=== PATIENT | female | born 1945 | race Caucasian/White ===

== ENCOUNTER 2023-09-02 18:07 | Observation (INO) ==
[2023-09-02 19:08] LABS: Basophils # (auto) 0.05 K/uL (0.00-0.20); Basophils % (auto) 0.4 %; Eosinophils # (auto) 0.11 K/uL (0.00-0.50); Hematocrit (blood only) 45.4 % (37.0-47.0); Hemoglobin 15.9 g/dl (12.0-16.0); Immature Granulocytes # (auto) 0.04 K/uL (0.01-0.20); Immature Granulocytes % (auto) 0.4 %; Lymphocytes # (auto) 2.44 K/uL (1.20-3.40); Lymphocytes % (auto) 21.9 %; Mean Corpuscular Hemoglobin 30.8 pg (25.0-34.0); Mean Platelet Volume 11.2 fL (9.4-12.4); Monocytes # (auto) 1.31 K/uL (0.11-0.59); Monocytes % (auto) 11.7 %; Neutrophils # (auto) 7.21 K/uL (1.40-6.50); Neutrophils % (auto) 64.6 %; Platelet Count 268 K/uL (130-400); RDW Coefficient of Variation 12.2 % (11.5-14.5); RDW Standard Deviation 39.8 fL (36.4-46.3); Red Blood Count 5.16 M/uL (4.20-5.40); White Blood Count 11.16 K/ul (4.8-10.8)
[2023-09-02 19:23] LABS: Alanine Aminotransferase 20 U/L (7-52); Albumin Globulin Ratio 1.4 (0.9-2); Albumin Level 4.5 gm/dl (3.4-5.0); Alkaline Phosphatase 78 U/L (34-104); Anion Gap 12 (3-11); Aspartate Aminotransferase 19 U/L (13-39); BUN Creatinine Ratio 13.2 (10-20); Bilirubin,Total 1.4 mg/dl (0.2-1.0); Blood Urea Nitrogen 23 mg/dl (6-23); Calcium 10.2 mg/dl (8.6-10.3); Carbon Dioxide 20 mmol/L (21-32); Chloride 103 mmol/L (98-107); Est GFR (African American) 32.4 ml/min; Globulin 3.2 gm/dl (2.5-4.0); Glucose 108 mg/dl (70-99(Fasting)); Potassium 4.2 mmol/L (3.5-5.1); Sodium 135 mmol/L (136-145); Total Protein 7.7 gm/dl (6.0-8.3)
[2023-09-02] MEDS ORDERED: MoRPHine SULFATE 4 MG/ML 1 ML CARP\\VIAL IV STA ×2 (20:20→23:05)
[2023-09-02] MEDS ORDERED: MoRPHine SULFATE 4 MG/ML 1 ML CARP\\VIAL IV PRN (20:20)
[2023-09-02] MEDS ORDERED: ONDANSETRON INJ 2 MG/ML 2 ML VIAL IV STA ×2 (20:20→23:12)
[2023-09-02] MEDS ORDERED: SODIUM CHLORIDE 0.9% 500 ML IV ONE (20:20)
--- NOTE | 2023-09-02 20:20 | Emergency Department Note ---
Impression & Plan Lumbar radiculopathy, Strain of lumbar region ED Provider Note NAME: SHEIAL BASS AGE: 78 SEX: F : 1945 ARRIVES VIA: Walk-In INFORMANT: Patient, the patient's family ED PROVIDER(S): Mark Israel DO CHIEF COMPLAINT: Back pain HPI: The patient is a 78-year-old female who presented to the emergency department for an evaluation of back pain. The patient has been having problems with lower back pain over the course the last few years. Symptoms have been worsening recently. She has had injections in her back. She has been on pain medication. She now notices pain into her right leg. She is not able to have an MRI because of her pacemaker. The patient herself saw her primary pain doctor. She was told to go to the emergency department for possible further testing as well as possible inpatient management. The patient denies having any fever. She denies having any recent trauma. ROS: See above HPI for pertinent positives & negatives. A total of 10 systems reviewed and were otherwise negative. PAST MEDICAL HISTORY: See Below PAST SURGICAL HISTORY: See Below FAMILY HISTORY: See Below SOCIAL HISTORY: See Below HOME MEDICATIONS: See Below ALLERGIES: See Below VITALS: See Below PHYSICAL EXAMINATION: GENERAL: Patient is awake alert in no acute distress patient is resting comfortably and showing no signs of anxiety EYES: The conjunctivae are clear. The pupils are round and reactive. EARS, NOSE, MOUTH AND THROAT: The nose is without any evidence of any deformity. NECK: The neck is nontender and supple. RESPIRATORY: Normal respiratory effort is noted there is no evidence of wheezing rhonchi or rales CARDIOVASCULAR: Regular rate and rhythm noted there no murmurs rubs or gallops normal S1 normal S2. GASTROINTESTINAL: The abdomen is soft. Abdomen is nontender. BACK: Midline tenderness was noted in the lower lumbar spine as well as over the right sciatic notch. Range of motion appears intact but painful. MUSCULOSKELETAL/EXTREMITIES: There is no evidence of gross deformity full range of motion is noted in the hips and shoulders. SKIN: There is no obvious evidence of any rash. There are no petechiae, pallor or cyanosis noted. NEUROLOGIC: Patient is awake alert and oriented x3. Patellar tendon reflex in the left leg was 2+. Patellar tendon reflex was absent the right leg. MEDICAL DECISION MAKING: Patient is a 78-year-old female who presented to the emergency department for an evaluation of back pain. The patient has a history of chronic back pain which is starting to worsen. The patient was seen by her primary pain specialist. He feels that she is not receiving significant pain relief with the modalities that he can provide any recommend that she come to the emergency department for further evaluation. Patient was treated with IV pain medication as well as IV steroids emergency department. I discussed the patient's laboratory and radiographic studies with her. Ultimately she was still feeling significant pain so I discussed her condition with the on-call [facility] hospitalist. Triage Nursing notes reviewed. Prior medical records reviewed Vital Signs: reviewed and remarkable for elevated blood pressure. Differential diagnosis: Musculoskeletal, disc herniation, fracture, metastatic disease, cord compression, discitis, sciatica, cauda equina, infection, aortic disease, renal colic, gastrointestinal, as well as other pathologies. ER treatment provided: See below Diagnostics interpreted by me: ECG: none Cardiac Monitoring: An order was placed for continuous cardiac monitoring. The monitor shows a rate of 60 bpm with paced rhythm. Laboratory studies: As stated above and show below. Imaging studies: See below. Radiographic imaging was reviewed by myself Consultation(s): I discussed this case with Dr. Waterman who is on-call for the [facility]. Past Med/Surg History Medical History Pacemaker Surgical History Hx of cholecystectomy H/O: hysterectomy History of tonsillectomy Social History Smoking Status: Former smoker Preferred Language: Senegalese Feels Safe at Home: Yes Allergies Allergies Allergy/AdvReac Type Severity Reaction Status Date / Time adhesive tape Allergy Intermediate SKIN Verified 09/02/23 21:41 IRRITATION Iodinated Contrast Media Allergy Intermediate TROUBLE Verified 09/02/23 23:07 BREATHING, "HOT" FLUSHED Penicillins Allergy Intermediate INJECTION Verified 09/02/23 21:41 SITE--SEVERE SWELLING tramadol Allergy Unknown Unknown Verified 09/02/23 21:41 oxycodone [From Percocet] AdvReac Intermediate Vomiting Verified 09/02/23 21:41 Home Meds Home Medications Medication Instructions Recorded Confirmed albuterol sulfate 90 mcg/actuation 1 inh inhalation Q4H PRN Shortness 09/02/23 09/02/23 aerosol inhaler Of Breath Or Wheezing aspirin 81 mg tablet,delayed 81 mg PO DAILY 09/02/23 09/02/23 release cholecalciferol (vitamin D3) 50 50 mcg PO DAILY 09/02/23 09/02/23 mcg (2,000 unit) capsule (Vitamin D3) cyanocobalamin (vitamin B-12) 1,000 mcg PO DAILY 09/02/23 09/02/23 1,000 mcg tablet (Vitamin B-12) dicyclomine 20 mg tablet 20 mg PO TID PRN ABD DISCOMFORT 09/02/23 09/02/23 fluticasone furoate 200 1 inh inhalation DAILY 09/02/23 09/02/23 mcg-vilanterol 25 mcg/dose inhalation powder (Breo Ellipta) gabapentin 600 mg tablet 600 mg PO HS 09/02/23 09/02/23 levothyroxine 75 mcg tablet 75 mcg PO DAILY 09/02/23 09/02/23 losartan 100 mg tablet 100 mg PO DAILY 09/02/23 09/02/23 pantoprazole 40 mg tablet,delayed 40 mg PO DAILY 09/02/23 09/02/23 release rosuvastatin 20 mg tablet 20 mg PO DAILY 09/02/23 09/02/23 simethicone 80 mg chewable tablet 80 mg PO DIRECTED PRN 09/02/23 09/02/23 BLOATING/GAS DISCOMFORT zolpidem 5 mg tablet (Ambien) 5 mg PO HS 09/02/23 09/02/23 Results & Data (ED) Vital Signs Vital Signs - 24 hr 09/02/23 18:23 09/02/23 19:45 09/02/23 19:51 Temperature 36.8 C Temperature Source Temporal Artery Scan Pulse Rate 90 60 Pulse Rate [Apical] 60 Pulse Rhythm Regular Pulse Rhythm [Apical] Regular Pulse Strength Normal Respiratory Rate 20 20 Respiratory Effort / Characteristics Non-Labored Spontaneous Non-Labored Spontaneous Respiratory Depth Normal Normal Respiratory Pattern Regular Regular Blood Pressure 91/59 L Blood Pressure [Right Arm] 120/64 Blood Pressure Mean 69 Blood Pressure Mean [Right Arm] 82 Blood Pressure Position [Right Arm] Lying Pulse Oximetry 97 100 Oxygen Delivery Method Room Air Room Air Sepsis Recent Fever Within 48 Hours No Sepsis New/Unexplained Change in Mental Status No Sepsis Action Taken by Nursing No Action Required 09/02/23 22:08 Temperature Temperature Source Pulse Rate Pulse Rate [Apical] 60 Pulse Rhythm Pulse Rhythm [Apical] Regular Pulse Strength Respiratory Rate 18 Respiratory Effort / Characteristics Non-Labored Spontaneous Respiratory Depth Normal Respiratory Pattern Regular Blood Pressure Blood Pressure [Right Arm] 150/61 H Blood Pressure Mean Blood Pressure Mean [Right Arm] 90 Blood Pressure Position [Right Arm] Lying Pulse Oximetry 98 Oxygen Delivery Method Room Air Sepsis Recent Fever Within 48 Hours Sepsis New/Unexplained Change in Mental Status Sepsis Action Taken by [facility] Medications Current Medication List: was personally reviewed by me Laboratory Data Attestation: I reviewed the patient's lab results. 09/02/23 18:51 09/02/23 18:51 Lab Results 09/02/23 Range/Units 18:51 WBC 11.16 H (4.8-10.8) K/ul RBC 5.16 (4.20-5.40) M/uL Hgb 15.9 (12.0-16.0) g/dl Hct 45.4 (37.0-47.0) % MCV 88.0 (80.0-100.0) fL MCH 30.8 (25.0-34.0) pg MCHC 35.0 (32.0-36.0) g/dL RDW Std Deviation 39.8 (36.4-46.3) fL RDW Coeff of Nika 12.2 (11.5-14.5) % Plt Count 268 (130-400) K/uL MPV 11.2 (9.4-12.4) fL Immature Gran % (Auto) 0.4 % Neut % (Auto) 64.6 % Lymph % (Auto) 21.9 % [place] % (Auto) 11.7 % Eos % (Auto) 1.0 % Baso % (Auto) 0.4 % Neut # (Auto) 7.21 H (1.40-6.50) K/uL Lymph # (Auto) 2.44 (1.20-3.40) K/uL [place] # (Auto) 1.31 H (0.11-0.59) K/uL Eos # (Auto) 0.11 (0.00-0.50) K/uL Baso # (Auto) 0.05 (0.00-0.20) K/uL Immature Gran # (Auto) 0.04 (0.01-0.20) K/uL Sodium 135 L (136-145) mmol/L Potassium 4.2 (3.5-5.1) mmol/L Chloride 103 (98-107) mmol/L Carbon Dioxide 20 L (21-32) mmol/L Anion Gap 12 H (3-11) BUN 23 (6-23) mg/dl Creatinine 1.74 H (0.6-1.2) mg/dl Est Cr Clr Drug Dosing Not Reportable Est GFR ( Amer) 32.4 ml/min Est GFR (Non-Af Amer) 28.0 ml/min BUN/Creatinine Ratio 13.2 (10-20) Glucose 108 H (70-99(Fasting)) mg/dl Calcium 10.2 (8.6-10.3) mg/dl Total Bilirubin 1.4 H (0.2-1.0) mg/dl AST 19 (13-39) U/L ALT 20 (7-52) U/L Alkaline Phosphatase 78 (34-104) U/L Total Protein 7.7 (6.0-8.3) gm/dl Albumin 4.5 (3.4-5.0) gm/dl Globulin 3.2 (2.5-4.0) gm/dl Albumin/Globulin Ratio 1.4 (0.9-2) Administered Medications Morphine Sulfate (Morphine Sulfate 4 Mg/Ml 1 Ml Carp\\Vial) 4 mg IV Q30M PRN PRN Reason: Pain Stop: 09/16/23 20:19 Last Admin: 09/02/23 21:26 Dose: 4 mg Documented By: SAMRA Morphine Sulfate (Morphine Sulfate 4 Mg/Ml 1 Ml Carp\\Vial) 4 mg IV NOW STA Stop: 09/02/23 23:06 Last Admin: 09/02/23 23:22 Dose: 4 mg Documented By: NAHID Ondansetron HCl (Ondansetron Inj 2 Mg/Ml 2 Ml Vial) 4 mg IV NOW STA Stop: 09/02/23 23:13 Last Admin: 09/02/23 23:22 Dose: 4 mg Documented By: NAHID Discontinued Medications Dexamethasone Sodium Phosphate (DexamethasonePf 10 Mg/Ml Vial) 10 mg IV NOW ONE Stop: 09/02/23 21:47 Last Admin: 09/02/23 22:07 Dose: 10 mg Documented By: BILL Sodium Chloride (Nss) 500 mls @ 999 mls/hr IV .Q31M ONE Stop: 09/02/23 20:50 Last Infusion: 09/02/23 22:09 Dose: Infused Documented By: Admin: 09/02/23 20:28 Dose: 999 mls/hr Documented By: BILL Morphine Sulfate (Morphine Sulfate 4 Mg/Ml 1 Ml Carp\\Vial) 4 mg IV NOW STA Stop: 09/02/23 20:21 Last Admin: 09/02/23 20:25 Dose: 4 mg Documented By: BILL Ondansetron HCl (Ondansetron Inj 2 Mg/Ml 2 Ml Vial) 4 mg IV NOW STA Stop: 09/02/23 20:21 Last Admin: 09/02/23 20:25 Dose: 4 mg Documented By: BILL Imaging Data Attestation: I personally reviewed and interpreted this imaging study as follows: My Impression: CT of the abdomen and pelvis was obtained in the emergency department. My interpretation is no free air or signs of bowel obstruction, final report below. Radiologist's Impression: Abdomen/Pelvis CT 09/02/23 20:20 Exam(s): CT ABDOMEN + PELVIS Without Contrast EXAM: CT Abdomen and Pelvis Without Intravenous Contrast CLINICAL HISTORY: Reason for exam: flank pain. TECHNIQUE: Axial computed tomography images of the abdomen and pelvis without intravenous contrast. CTDI is 26.58 mGy and DLP is 1287.83 mGy-cm. Automated exposure control was utilized for the study. A dose lowering technique was utilized adhering to the principles of ALARA. COMPARISON: No relevant prior studies available. FINDINGS: Lung bases: Unremarkable. No mass. No consolidation. ABDOMEN: Liver: Unremarkable. No focal hepatic lesion. Gallbladder and bile ducts: Cholecystectomy. No ductal dilation. Pancreas: Unremarkable. No ductal dilation. Spleen: Unremarkable. No splenomegaly. Adrenals: Unremarkable. No mass. Kidneys and ureters: Unremarkable. No hydronephrosis or nephrolithiasis. Stomach and bowel: Unremarkable. No acute diverticulitis. No bowel obstruction. No free air. PELVIS: Appendix: No findings to suggest acute appendicitis. Bladder: Decompressed urinary bladder. No stones. Reproductive: Unremarkable as visualized. ABDOMEN and PELVIS: Intraperitoneal space: See above. Bones/joints: Degenerative changes of the spine. No acute fracture. No dislocation. Soft tissues: Unremarkable. Vasculature: Atherosclerotic changes of the aorta. No abdominal aortic aneurysm. Lymph nodes: Unremarkable. No enlarged lymph nodes. IMPRESSION: No hydronephrosis or nephrolithiasis. Electronically signed by: David Byrd MD 09/02/23 20:54 PM Discharge Plan Visit Data Chief Complaint: Back Injury/Pain Stated Complaint: BACK PAIN SINCE BEGINING OF AUGUST ED Provider: Mark Israel Discharge Problem: Lumbar radiculopathy, Strain of lumbar region Patient Disposition: Being Evaluated by Hospitalist Forms Stand Alone Forms: [facility] Prescriptions Prescriptions: No Action gabapentin 600 mg Tablet 600 mg PO HS cyanocobalamin (vitamin B-12) [Vitamin B-12] 1,000 mcg Tablet 1,000 mcg PO DAILY aspirin 81 mg Tablet,Delayed Release (Dr/Ec) 81 mg PO DAILY levothyroxine 75 mcg Tablet 75 mcg PO DAILY dicyclomine 20 mg Tablet 20 mg PO TID PRN (Reason: ABD DISCOMFORT) pantoprazole 40 mg Tablet,Delayed Release (Dr/Ec) 40 mg PO DAILY zolpidem [Ambien] 5 mg Tablet 5 mg PO HS albuterol sulfate 90 mcg/actuation Hfa Aerosol Inhaler 1 inh INHALATION Q4H PRN (Reason: Shortness Of Breath Or Wheezing) losartan 100 mg Tablet 100 mg PO DAILY simethicone [Gas-X] 80 mg Tablet,Chewable 80 mg PO DIRECTED PRN (Reason: BLOATING/GAS DISCOMFORT) rosuvastatin 20 mg Tablet 20 mg PO DAILY cholecalciferol (vitamin D3) [Vitamin D3] 50 mcg (2,000 unit) Capsule 50 mcg PO DAILY fluticasone furoate-vilanterol [Breo Ellipta] 200-25 mcg/dose Blister With Device 1 inh INHALATION DAILY Referrals Referrals: PCP,NO [Physician] - Discharge Problem: Strain of lumbar region Qualifiers: Encounter type: initial encounter Qualified Code(s): S39.012A - Strain of muscle, fascia and tendon of lower back, initial encounter
--- NOTE | 2023-09-02 20:55 | CT Scan Report ---
Exam(s): CT ABDOMEN + PELVIS Without Contrast EXAM: CT Abdomen and Pelvis Without Intravenous Contrast CLINICAL HISTORY: Reason for exam: flank pain. TECHNIQUE: Axial computed tomography images of the abdomen and pelvis without intravenous contrast. CTDI is 26.58 mGy and DLP is 1287.83 mGy-cm. Automated exposure control was utilized for the study. A dose lowering technique was utilized adhering to the principles of ALARA. COMPARISON: No relevant prior studies available. FINDINGS: Lung bases: Unremarkable. No mass. No consolidation. ABDOMEN: Liver: Unremarkable. No focal hepatic lesion. Gallbladder and bile ducts: Cholecystectomy. No ductal dilation. Pancreas: Unremarkable. No ductal dilation. Spleen: Unremarkable. No splenomegaly. Adrenals: Unremarkable. No mass. Kidneys and ureters: Unremarkable. No hydronephrosis or nephrolithiasis. Stomach and bowel: Unremarkable. No acute diverticulitis. No bowel obstruction. No free air. PELVIS: Appendix: No findings to suggest acute appendicitis. Bladder: Decompressed urinary bladder. No stones. Reproductive: Unremarkable as visualized. ABDOMEN and PELVIS: Intraperitoneal space: See above. Bones/joints: Degenerative changes of the spine. No acute fracture. No dislocation. Soft tissues: Unremarkable. Vasculature: Atherosclerotic changes of the aorta. No abdominal aortic aneurysm. Lymph nodes: Unremarkable. No enlarged lymph nodes. IMPRESSION: No hydronephrosis or nephrolithiasis. Electronically signed by: David Byrd MD 09/02/23 20:54 PM
[2023-09-02] MEDS ORDERED: dexAMETHasone**PF** 10 MG/ML VIAL IV ONE (21:46)
[2023-09-02] MEDS ORDERED: ONDANSETRON INJ 2 MG/ML 2 ML VIAL IV PRN (23:12)
--- NOTE | 2023-09-02 23:24 | History & Physical Report ---
Date of Service September 02, 2023 Assessment & Plan (1) Lumbar radiculopathy: Plan: 78yo female with history of chronic low back pain, sacroiliitis presenting with 2+ weeks of ongoing back pain. Pain is bilateral SI joints, worse on the right. Also with radicular pain down anterior right thigh to the knee likely corresponding with L2-L3 territory. Strength and sensation intact but she does have diminished patellar reflex. No trauma or fever. -Admit to medical -Tylenol 1gm po TID scheduled -Heat via K-pad -Flexeril 5mg po BID -Prednisone 50mg po daily -Morphine as needed per tiered scale -Continue home Gabapentin -Colace 100mg po BID -Miralax PRN -PT/OT evaluation appreciated -Consider Ortho-Spine consultation vs outpatient referral. Patient's pain specialist recommended that she be evaluated for possible surgery in the future. (2) CKD (chronic kidney disease): Plan: Unknown baseline renal function. BUN=23, Cr elevated at 1.74. Suspect some degree of renal dysfunction (HCO3=20 with AG of 12)? -Gentle IVF - LR x 1L -Avoid nephrotoxic agents -Renal dosing where needed - eGFR=28 -If renal function improves could consider some Toradol for additional pain relilef -Holdin Losartan (3) TIA (transient ischemic attack): Plan: Chronic. Stable. -Continue ASA 81mg po daily -Continue Crestor (4) Louis esophagus: Plan: Chronic. Stable -Continue Protonix 40mg po daily (5) Hypothyroid: Plan: Chronic -Continue Synthroid -Check TSH with AM labs History of Present Illness Chief Complaint: intractable back pain Primary Care Provider: VERÓNICA Higgins is a 78yo female presenting with acute on chronic low back pain. Patient developed pain across her back in bilateral SI joints on 08/16/23. She was seen by her pain specialist, Dr. Pickering on 08/18/23 and had injections performed. She reports minimal relief with these injections. She has been taking Tylnoel, Aleve and using ice and heat with minimal relief. She took a Percocet tab as well which did not relieve her pain. She was seen again by Dr. Pickering on 08/23/23 and was told that her pain was likely from a pinched nerve in her back. She was given additional injections with some improvement for 1-2 days. She was seen in clinic again today with ongoing pain and was instructed to come to the ER for additional workup and treatment. Patient reports severe, ongoing pain in her bilateral SI joints which is worse on the right. She has pain radiating down the right anterior thigh to the knee. She feels that the RLE is overall fairly strong but sometimes des which she thinks is from the pain. She has had some constipation, otherwise, no change in bowels or bladder. No fever. No trauma. Patient has had poor appetite and decreased oral intake of late secondary to her pain. She has had some constipation as well. Otherwise, denies fever, chills, chest pain, cough,, SOB, abdominal pain, vomiting or diarrhea. At baseline she is fairly active. She is able to ambulate short distances without assistance. She also walks her dog frequently. In the ER she is afebrile, HD stable ER course: Zofran 4mg IV x 2 Morphine 4mg IV x 3 doses NSS x 500mL Dexamethasone 10mg IV Allergies Allergy/AdvReac Type Severity Reaction Status Date / Time adhesive tape Allergy Intermediate SKIN Verified 09/02/23 21:41 IRRITATION Iodinated Contrast Media Allergy Intermediate TROUBLE Verified 09/02/23 23:07 BREATHING, "HOT" FLUSHED Penicillins Allergy Intermediate INJECTION Verified 09/02/23 21:41 SITE--SEVERE SWELLING tramadol Allergy Unknown Unknown Verified 09/02/23 21:41 oxycodone [From Percocet] AdvReac Intermediate Vomiting Verified 09/02/23 21:41 Home Medications Medication Instructions Recorded Confirmed Type albuterol sulfate 90 mcg/actuation 1 inh inhalation Q4H PRN Shortness 09/02/23 09/02/23 History aerosol inhaler Of Breath Or Wheezing aspirin 81 mg tablet,delayed 81 mg PO DAILY 09/02/23 09/02/23 History release cholecalciferol (vitamin D3) 50 50 mcg PO DAILY 09/02/23 09/02/23 History mcg (2,000 unit) capsule (Vitamin D3) cyanocobalamin (vitamin B-12) 1,000 mcg PO DAILY 09/02/23 09/02/23 History 1,000 mcg tablet (Vitamin B-12) dicyclomine 20 mg tablet 20 mg PO TID PRN ABD DISCOMFORT 09/02/23 09/02/23 History fluticasone furoate 200 1 inh inhalation DAILY 09/02/23 09/02/23 History mcg-vilanterol 25 mcg/dose inhalation powder (Breo Ellipta) gabapentin 600 mg tablet 600 mg PO HS 09/02/23 09/02/23 History levothyroxine 75 mcg tablet 75 mcg PO DAILY 09/02/23 09/02/23 History losartan 100 mg tablet 100 mg PO DAILY 09/02/23 09/02/23 History pantoprazole 40 mg tablet,delayed 40 mg PO DAILY 09/02/23 09/02/23 History release rosuvastatin 20 mg tablet 20 mg PO DAILY 09/02/23 09/02/23 History simethicone 80 mg chewable tablet 80 mg PO DIRECTED PRN 09/02/23 09/02/23 His tory BLOATING/GAS DISCOMFORT zolpidem 5 mg tablet (Ambien) 5 mg PO HS 09/02/23 09/02/23 History Past Med/Surg History Medical History (Updated 09/02/23 @ 23:47 by Tawana Waterman DO) Hypothyroid Eosinophilic esophagitis Louis esophagus CKD (chronic kidney disease) TIA (transient ischemic attack) Asthma Glaucoma Spondylolisthesis Sacroiliitis Surgical History (Updated 09/02/23 @ 23:44 by Tawana Waterman DO) Pacemaker Hx of cholecystectomy H/O: hysterectomy History of tonsillectomy Family History (Updated 09/02/23 @ 23:45 by Tawana Waterman DO) Other Coronary heart disease Social History Smoking Status: Former smoker Preferred Language: Gabonese Feels Safe at Home: Yes Review of Systems Review of Systems: All systems reviewed & are unremarkable except as noted in HPI & below Physical Exam Physical Exam: General: patient resting in moderate pain, non-toxic in appearance, AA&O x 4 Skin: warm, dry, intact, no rashes or lesions HEENT: NC/AT, PERRL, EOMI, anicteric sclera, conjunctiva without injection, external ear normal to inspection and nontender, nares patent, moist mucus membranes, dentition intact, no oropharyngeal lesions, neck supple, trachea midline, no LAD, no thyromegaly, no JVD Heart: +S1/S2, regular, no m/r/g Lungs: equal air entry bilaterally, no rales/rhonchi/wheezes Abd: +BS, soft, NT/ND, no masses/organomegaly/ascites Ext: warm, 2+ pulses in UE/LE bilaterally, no clubbing/cyanosis or edema Neuro: nonfocal, patient AA&O x 4, speech intact, no facial droop, moving all extremities on command with equal strength 5/5, diminished right patellar reflex Results & Data Results & Data Vital Signs (Past 12 Hours) Vital Signs Temp Pulse Pulse Resp BP BP Pulse Ox 09/02/23 22:08 60 18 150/61 H 98 09/02/23 19:51 60 20 120/64 100 09/02/23 19:45 60 09/02/23 18:23 36.8 C 90 20 91/59 L 97 O2 Del Method 09/02/23 22:08 Room Air 09/02/23 19:51 Room Air 09/02/23 19:45 09/02/23 18:23 Room Air Laboratory Results Laboratory Results WBC 11.16 K/ul (4.8-10.8) H 09/02/23 18:51 RBC 5.16 M/uL (4.20-5.40) 09/02/23 18:51 Hgb 15.9 g/dl (12.0-16.0) 09/02/23 18:51 Hct 45.4 % (37.0-47.0) 09/02/23 18:51 MCV 88.0 fL (80.0-100.0) 09/02/23 18:51 MCH 30.8 pg (25.0-34.0) 09/02/23 18:51 MCHC 35.0 g/dL (32.0-36.0) 09/02/23 18:51 RDW Std Deviation 39.8 fL (36.4-46.3) 09/02/23 18:51 RDW Coeff of Nika 12.2 % (11.5-14.5) 09/02/23 18:51 Plt Count 268 K/uL (130-400) 09/02/23 18:51 MPV 11.2 fL (9.4-12.4) 09/02/23 18:51 Immature Gran % (Auto) 0.4 % 09/02/23 18:51 Neut % (Auto) 64.6 % 09/02/23 18:51 Lymph % (Auto) 21.9 % 09/02/23 18:51 Wilson % (Auto) 11.7 % 09/02/23 18:51 Eos % (Auto) 1.0 % 09/02/23 18:51 Baso % (Auto) 0.4 % 09/02/23 18:51 Neut # (Auto) 7.21 K/uL (1.40-6.50) H 09/02/23 18:51 Lymph # (Auto) 2.44 K/uL (1.20-3.40) 09/02/23 18:51 Wilson # (Auto) 1.31 K/uL (0.11-0.59) H 09/02/23 18:51 Eos # (Auto) 0.11 K/uL (0.00-0.50) 09/02/23 18:51 Baso # (Auto) 0.05 K/uL (0.00-0.20) 09/02/23 18:51 Immature Gran # (Auto) 0.04 K/uL (0.01-0.20) 09/02/23 18:51 Sodium 135 mmol/L (136-145) L 09/02/23 18:51 Potassium 4.2 mmol/L (3.5-5.1) 09/02/23 18:51 Chloride 103 mmol/L (98-107) 09/02/23 18:51 Carbon Dioxide 20 mmol/L (21-32) L 09/02/23 18:51 Anion Gap 12 (3-11) H 09/02/23 18:51 BUN 23 mg/dl (6-23) 09/02/23 18:51 Creatinine 1.74 mg/dl (0.6-1.2) H 09/02/23 18:51 Est Cr Clr Drug Dosing Not Reportable 09/02/23 18:51 Est GFR ( Amer) 32.4 ml/min 09/02/23 18:51 Est GFR (Non-Af Amer) 28.0 ml/min 09/02/23 18:51 BUN/Creatinine Ratio 13.2 (10-20) 09/02/23 18:51 Glucose 108 mg/dl (70-99(Fasting)) H 09/02/23 18:51 Calcium 10.2 mg/dl (8.6-10.3) 09/02/23 18:51 Total Bilirubin 1.4 mg/dl (0.2-1.0) H 09/02/23 18:51 AST 19 U/L (13-39) 09/02/23 18:51 ALT 20 U/L (7-52) 09/02/23 18:51 Alkaline Phosphatase 78 U/L (34-104) 09/02/23 18:51 Total Protein 7.7 gm/dl (6.0-8.3) 09/02/23 18:51 Albumin 4.5 gm/dl (3.4-5.0) 09/02/23 18:51 Globulin 3.2 gm/dl (2.5-4.0) 09/02/23 18:51 Albumin/Globulin Ratio 1.4 (0.9-2) 09/02/23 18:51 Impressions Abdomen/Pelvis CT 09/02/23 20:20 Exam(s): CT ABDOMEN + PELVIS Without Contrast EXAM: CT Abdomen and Pelvis Without Intravenous Contrast CLINICAL HISTORY: Reason for exam: flank pain. TECHNIQUE: Axial computed tomography images of the abdomen and pelvis without intravenous contrast. CTDI is 26.58 mGy and DLP is 1287.83 mGy-cm. Automated exposure control was utilized for the study. A dose lowering technique was utilized adhering to the principles of ALARA. COMPARISON: No relevant prior studies available. FINDINGS: Lung bases: Unremarkable. No mass. No consolidation. ABDOMEN: Liver: Unremarkable. No focal hepatic lesion. Gallbladder and bile ducts: Cholecystectomy. No ductal dilation. Pancreas: Unremarkable. No ductal dilation. Spleen: Unremarkable. No splenomegaly. Adrenals: Unremarkable. No mass. Kidneys and ureters: Unremarkable. No hydronephrosis or nephrolithiasis. Stomach and bowel: Unremarkable. No acute diverticulitis. No bowel obstruction. No free air. PELVIS: Appendix: No findings to suggest acute appendicitis. Bladder: Decompressed urinary bladder. No stones. Reproductive: Unremarkable as visualized. ABDOMEN and PELVIS: Intraperitoneal space: See above. Bones/joints: Degenerative changes of the spine. No acute fracture. No dislocation. Soft tissues: Unremarkable. Vasculature: Atherosclerotic changes of the aorta. No abdominal aortic aneurysm. Lymph nodes: Unremarkable. No enlarged lymph nodes. IMPRESSION: No hydronephrosis or nephrolithiasis. Electronically signed by: David Byrd MD 09/02/23 20:54 PM PG Care Time/CCT Total # of Minutes Spent Total Time Spent with Patient: Total time spent is greater than 50% in coordination of care (as documented) at patient's floor/unit and/or counseling patient: Coding Level of Care Code 55394 INT INP/OBS CARE 3/75MIN Diagnoses Lumbar radiculopathy M54.16 CKD (chronic kidney disease) N18.9 TIA (transient ischemic attack) G45.9 Louis esophagus K22.70 Hypothyroid E03.9
[2023-09-03] MEDS ORDERED: POLYETHYLENE (MIRALAX) 17 GM PACK PO PRN (01:03)
[2023-09-03] MEDS ORDERED: LACTATED RINGER'S 1,000 ML IV SCH (01:03)
[2023-09-03] MEDS ORDERED: MoRPHine SULFATE 4 MG/ML 1 ML CARP\\VIAL IV PRN (01:03)
[2023-09-03] MEDS ORDERED: SIMETHICONE 80 MG CHEW PO PRN (01:03)
[2023-09-03] MEDS ORDERED: PROCHLORPERAZINE 5 MG in SYRINGE 4 ML IV ONE (01:30)
[2023-09-03 01:46] LABS: Thyroid Stimulating Hormone 11.616 uIu/ml (0.300-4.500)
[2023-09-03] MEDS ORDERED: LEVOTHYROXINE SODIUM 75 MCG TABLET PO SCH (06:30)
[2023-09-03 08:02] LABS: Hematocrit (blood only) 37.8 % (37.0-47.0); Hemoglobin 13.1 g/dl (12.0-16.0); Mean Corpuscular Hemoglobin 30.5 pg (25.0-34.0); Mean Corpuscular Hgb Conc 34.7 g/dL (32.0-36.0); Mean Corpuscular Volume 88.1 fL (80.0-100.0); Mean Platelet Volume 11.4 fL (9.4-12.4); Platelet Count 213 K/uL (130-400); RDW Coefficient of Variation 12.4 % (11.5-14.5); Red Blood Count 4.29 M/uL (4.20-5.40); White Blood Count 7.26 K/ul (4.8-10.8)
[2023-09-03] MEDS: DICYCLOMINE HCL 20 MG TAB PO PRN (08:18)
[2023-09-03] MEDS: ASPIRIN 81 MG ECTAB PO SCH (08:18)
[2023-09-03] MEDS: CYCLOBENZAPRINE HCL 5 MG TAB PO SCH ×2 (08:19→20:17)
[2023-09-03] MEDS: ROSUVASTATIN CALCIUM 20 MG TAB PO SCH (08:19)
[2023-09-03] MEDS: ACETAMINOPHEN 500 MG TAB PO SCH ×3 (08:19→20:17)
[2023-09-03] MEDS: PANTOprazole 40 MG TAB PO SCH (08:19)
[2023-09-03] MEDS: DOCUSATE SODIUM 100 MG CAP PO SCH ×2 (08:19→20:17)
[2023-09-03] MEDS: predniSONE 50 MG TAB PO SCH (08:19)
[2023-09-03] MEDS: LOSARTAN POTASSIUM 50 MG TAB PO SCH (08:20)
[2023-09-03 08:29] LABS: Bilirubin,Total 0.8 mg/dl (0.2-1.0)
[2023-09-03 08:30] LABS: Albumin Level 3.8 gm/dl (3.4-5.0); BUN Creatinine Ratio 21.4 (10-20); Bilirubin Direct 0.2 mg/dl (0-0.2); Calcium 8.8 mg/dl (8.6-10.3); Creatinine Clr Calc Pharmacy 35.4 ml/min; Est GFR (African American) 45.7 ml/min; Est GFR (Non-African American) 39.5 ml/min; Potassium 4.6 mmol/L (3.5-5.1); Total Protein 6.3 gm/dl (6.0-8.3)
[2023-09-03] MEDS: ONDANSETRON INJ 2 MG/ML 2 ML VIAL IV PRN (10:53)
[2023-09-03] MEDS ORDERED: LEVOTHYROXINE SODIUM 25 MCG TABLET PO ONE (11:09)
--- NOTE | 2023-09-03 11:18 | Hospitalist Progress Note ---
Date of Service September 03, 2023 Assessment & Plan (1) Lumbar radiculopathy: Plan: 78yo female with history of chronic low back pain, sacroiliitis presenting with 2+ weeks of ongoing back pain, despite spinal injections. Pain is bilateral SI joints, worse on the right. Also with radicular pain down anterior right thigh to the knee likely corresponding with L2-L3 territory. Strength and sensation intact . Patient is under fair control, now 3/10 in intensity following medications -Tylenol 1gm po TID scheduled -Heat via K-pad -Flexeril 5mg po BID -Prednisone 50mg po daily -Morphine as needed per tiered scale, although she claims morphine made her nauseous -Continue home Gabapentin -Could not obtain MRI on account of pacemaker -Outpatient follow-up with orthospine surgery -PT/OT evaluation appreciated (2) CKD (chronic kidney disease): Plan: Unknown baseline renal function. BUN=23, Cr elevated at 1.74. Suspect some degree of renal dysfunction (HCO3=20 with AG of 12)? -Gentle IVF - LR x 1L -Avoid nephrotoxic agents -Renal dosing where needed - eGFR=28 -If renal function improves could consider some Toradol for additional pain relilef -Holdin Losartan (3) TIA (transient ischemic attack): Plan: Chronic. Stable. -Continue ASA 81mg po daily -Continue Crestor (4) Louis esophagus: Plan: Chronic. Stable -Continue Protonix 40mg po daily (5) Hypothyroid: Plan: Chronic -Continue Synthroid -Check TSH with AM labs Plan Hopefully discharge in next 24 hours following better pain control Admission and Anticipated Discharge Date Admission Date: September 02, 2023 Subjective Patient seen and examined, pain is under fair control, 3/10 in intensity, stated morphine made her feel nauseous Review of Systems Review of Systems: All systems reviewed are negative, apart from the ones contained in the history. Physical Exam Physical Exam: The patient is awake, alert and oriented 3, well developed and well nourished, normocephalic and atraumatic, lying in bed and in no acute distress. HEENT--PERRL, EOMI, mucous membranes and oropharynx mildly dry Neck--supple. No JVD. No bruits. Thyroid normal, trachea midline, no adenopathy. Heart--normal S1 and S2. No murmurs, rubs or gallops. Lungs--clear bilaterally, no respiratory distress, no accessory muscle use. Abdomen--normal bowel sounds and soft. Extremities--no cyanosis or clubbing. No edema. Dermatologic--normal skin turgor, normal color, no abnormal lymph nodes, no rash. Neurologic--cranial nerves II through XII grossly intact. Rheumatologic--normal range of motion. Psychiatric--normal affect. Results & Data Results & Data Vital Signs (Past 12 Hours) Vital Signs Temp Pulse Pulse Resp BP Pulse Ox O2 Del Method 09/03/23 08:30 97.5 F L 65 16 145/74 H 96 Room Air 09/03/23 00:40 97.0 F L 16 118/73 97 Room Air 09/02/23 23:39 61 PG Care Time/CCT Total # of Minutes Spent Total Time Spent with Patient: Total time spent is greater than 50% in coordination of care (as documented) at patient's floor/unit and/or counseling patient: Coding Level of Care Code 16994 SUB INP/OBS CARE 2/35MIN Diagnoses Lumbar radiculopathy M54.16 CKD (chronic kidney disease) N18.9 TIA (transient ischemic attack) G45.9 Louis esophagus K22.70 Hypothyroid E03.9 Time Spent (min) 35
[2023-09-03] MEDS: ZOLPIDEM TARTRATE 5 MG TAB PO SCH (20:17)
[2023-09-03] MEDS: GABAPENTIN 600 MG TAB PO SCH (20:17)
[2023-09-04] MEDS: LEVOTHYROXINE SODIUM 100 MCG TABLET PO SCH (05:38)
[2023-09-04 07:32] LABS: BUN Creatinine Ratio 23.5 (10-20); Calcium 8.8 mg/dl (8.6-10.3); Creatinine Clr Calc Pharmacy 28.7 ml/min; Est GFR (African American) 35.4 ml/min; Est GFR (Non-African American) 30.5 ml/min
[2023-09-04] MEDS: ROSUVASTATIN CALCIUM 20 MG TAB PO SCH (07:49)
[2023-09-04] MEDS: CYCLOBENZAPRINE HCL 5 MG TAB PO SCH ×2 (07:50→20:23)
[2023-09-04] MEDS: predniSONE 50 MG TAB PO SCH (07:50)
[2023-09-04] MEDS: ASPIRIN 81 MG ECTAB PO SCH (07:50)
[2023-09-04] MEDS: PANTOprazole 40 MG TAB PO SCH (07:50)
[2023-09-04] MEDS: ACETAMINOPHEN 500 MG TAB PO SCH ×3 (07:50→20:24)
[2023-09-04] MEDS: LOSARTAN POTASSIUM 50 MG TAB PO SCH (07:51)
[2023-09-04] MEDS: DOCUSATE SODIUM 100 MG CAP PO SCH ×2 (07:52→20:23)
--- NOTE | 2023-09-04 11:38 | Hospitalist Progress Note ---
Date of Service September 04, 2023 Assessment & Plan (1) Lumbar radiculopathy: Plan: 78yo female with history of chronic low back pain, sacroiliitis presenting with 2+ weeks of ongoing back pain, despite spinal injections. Pain is bilateral SI joints, worse on the right. Also with radicular pain down anterior right thigh to the knee likely corresponding with L2-L3 territory. Strength and sensation intact . Patient unable to obtain MRI due to pacemaker Will obtain CT spine lumbar Patient is under fair control, now 3/10 in intensity following medications -Tylenol 1gm po TID scheduled -Heat via K-pad -Flexeril 5mg po BID -Prednisone 50mg po daily -Morphine as needed per tiered scale, although she claims morphine made her nauseous -Continue home Gabapentin -Outpatient follow-up with orthospine surgery -PT/OT evaluation appreciated (2) CKD (chronic kidney disease): Plan: Renal function at baseline, patient has CKD stage III -Avoid nephrotoxic agents -Renal dosing where needed - eGFR=28 -Holdin Losartan (3) TIA (transient ischemic attack): Plan: Chronic. Stable. -Continue ASA 81mg po daily -Continue Crestor (4) Louis esophagus: Plan: Chronic. Stable -Continue Protonix 40mg po daily (5) Hypothyroid: Plan: Chronic -Continue Synthroid -Check TSH with AM labs Plan Hopefully discharge in next 24 hours following better pain control Admission and Anticipated Discharge Date Admission Date: September 02, 2023 Subjective Patient seen and examined, pain is under fair control, 3/10 in intensity, stated morphine made her feel nauseous Review of Systems Review of Systems: All systems reviewed are negative, apart from the ones contained in the history. Physical Exam Physical Exam: The patient is awake, alert and oriented 3, well developed and well nourished, normocephalic and atraumatic, lying in bed and in no acute distress. HEENT--PERRL, EOMI, mucous membranes and oropharynx mildly dry Neck--supple. No JVD. No bruits. Thyroid normal, trachea midline, no adenopathy. Heart--normal S1 and S2. No murmurs, rubs or gallops. Lungs--clear bilaterally, no respiratory distress, no accessory muscle use. Abdomen--normal bowel sounds and soft. Extremities--no cyanosis or clubbing. No edema. Dermatologic--normal skin turgor, normal color, no abnormal lymph nodes, no rash. Neurologic--cranial nerves II through XII grossly intact. Rheumatologic--normal range of motion. Psychiatric--normal affect. Results & Data Results & Data Vital Signs (Past 12 Hours) Vital Signs Temp Pulse Resp BP Pulse Ox O2 Del Method 09/04/23 07:50 97.3 F L 64 16 113/69 97 Room Air PG Care Time/CCT Total # of Minutes Spent Total Time Spent with Patient: Total time spent is greater than 50% in coordination of care (as documented) at patient's floor/unit and/or counseling patient: Coding Level of Care Code 49063 SUB INP/OBS CARE 2/35MIN Diagnoses Lumbar radiculopathy M54.16 CKD (chronic kidney disease) N18.9 TIA (transient ischemic attack) G45.9 Louis esophagus K22.70 Hypothyroid E03.9 Time Spent (min) 35
--- NOTE | 2023-09-04 12:03 | CT Scan Report ---
LUMBAR SPINE CT CT DOSE: 951.9 mGy.cm HISTORY: back pain TECHNIQUE: Multiaxial CT images of the lumbar spine were performed and reformatted in the sagittal an d coronal plane without the use of contrast. A dose lowering technique was utilized adhering to the principles of ALARA. COMPARISON: Abdomen and pelvis CT 09/02/2023. FINDINGS: No fracture or subluxation within the lumbar spine. The visualized sacrum is intact. Modera te facet degenerative changes within the lower lumbar spine. Mild disc space narrowing at L4-L5 and m oderate disc space narrowing at L5-S1. There is 4 mm of anterolisthesis of L4 on L5. Moderate to jeff re bilateral neural foraminal narrowing at L4-L5 due to the spondylolisthesis and small broad-based p osterior disc bulge. There is also [id number] central canal narrowing at the L4-5 level due to the disc bulge and facet hypertrophy. Mild atrophic left kidney. Paravertebral soft tissues are unrem arkable. IMPRESSION: 1. No fractures within the lumbar spine. 2. Mild to moderate degenerative changes within the lower lumbar spine as described above. ACT 112: Negative or not required by law. Electronically signed by: Manuel Carr M.D. 09/04/2023 12:01 PM
[2023-09-04] MEDS ORDERED: traMADol HCL 50 MG TABLET PO PRN (14:10)
[2023-09-04] MEDS ORDERED: LIDOCAINE 5% 1 PATCH TD STA (14:24)
--- NOTE | 2023-09-04 17:27 | Orthopedic Consultation ---
Date of Service September 04, 2023 Assessment & Plan (1) Degenerative spondylolisthesis: (2) Disc degeneration, lumbosacral: (3) Lumbar radiculopathy: (4) Low back pain radiating to right leg: History of Present Illness Reason for Consultation: . Low back pain Requesting Physician: . Attending Physician: Carri Kendall MD . 78-year-old female who notes that she has been evaluated with low back pain in the past, has undergone SI joint injections, the last of which 3 years ago improved her pain up until just the beginning of this month. She noticed increased low back pain in the lumbosacral region, she was seen by Dr. Pickering a pain management physician in [place]. The exact types of injections are not known but she suspects they had to do the SI joints, she did get limited improvement with one of the injections but subsequent ones did not improve her pain. She had seen a Dr. Nam, surgeon in [place] but he told her years ago he would not do any surgeries on her due to her medical issues. For that reason she was recommended going to [facility] to be evaluated by Dr. Solomon who is not on-call this week, and medical management for her low back pain symptoms. She does note that she had some pain radiating around to her right anterior thigh but the low back pain is by far the more significant complaint. Exam reveals her to indicate pain right at the lumbosacral junction and on either side, she is somewhat tender to palpation in this region. She has intact strength for EHL ankle plantar dorsiflexion knee extension and hip flexion, pain on exertion is noted, negative straight leg raise. LUMBAR SPINE CT CT DOSE: 951.9 mGy.cm HISTORY: back pain TECHNIQUE: Multiaxial CT images of the lumbar spine were performed and reformatted in the sagittal and coronal plane without the use of contrast. A dose lowering technique was utilized adhering to the principles of ALARA. COMPARISON: Abdomen and pelvis CT 09/02/2023. FINDINGS: No fracture or subluxation within the lumbar spine. The visualized sacrum is intact. Moderate facet degenerative changes within the lower lumbar spine. Mild disc space narrowing at L4-L5 and moderate disc space narrowing at L5-S1. There is 4 mm of anterolisthesis of L4 on L5. Moderate to severe bilateral neural foraminal narrowing at L4-L5 due to the spondylolisthesis and small broad-based posterior disc bulge. There is also [id number] central canal narrowing at the L4-5 level due to the disc bulge and facet hypertrophy. Mild atrophic left kidney. Paravertebral soft tissues are unremarkable. IMPRESSION: 1. No fractures within the lumbar spine. 2. Mild to moderate degenerative changes within the lower lumbar spine as described above. Review of CT scan images of the lumbar spine today at [facility], this my separate interpretation, this reveals the patient to have grade 1 degenerative spondylolisthesis at L4-5, notable loss of degenerative changes at L5-S1 with facet changes at both these levels, the other levels are for the most part relatively unremarkable. There is some disc bulging at the L4-5 level and what I would consider moderate foraminal narrowing at L4-5. The SI joints are relatively unremarkable with some minimal changes present. Impression: Recent onset of low back pain starting at the beginning of the this month, no significant improvement with recent injections but the type of injections not known. Plan: In talking with the patient and family members, I related that the patient might of had injections focusing on the SI joints whereas she might of benefited from an epidural type injection in the lumbar spine, we would not be able to obtain this information until sometime next week. I related that the focus should be on mobilization with physical therapy and get her ambulating and pain controlled so she can then return to home as I do not think there is any changes on her CT scan that occurred at the beginning of this month, just arthritic changes which have now cause back pain. Unfortunately she does not tolerate narcotic type medication including tramadol, I related to her that she may need to try to take some of these medicines in the lower dose to improve her symptoms for mobilization. She can follow-up in my office at any point in the next few weeks or if she would prefer also be evaluated by Dr. Solomon after she has been released from the hospital, what ever works for her and her family. Allergies Allergy/AdvReac Type Severity Reaction Status Date / Time adhesive tape Allergy Intermediate SKIN Verified 09/02/23 21:41 IRRITATION Iodinated Contrast Media Allergy Intermediate TROUBLE Verified 09/02/23 23:07 BREATHING, "HOT" FLUSHED Penicillins Allergy Intermediate INJECTION Verified 09/02/23 21:41 SITE--SEVERE SWELLING tramadol Allergy Unknown Unknown Verified 09/02/23 21:41 oxycodone [From Percocet] AdvReac Intermediate Vomiting Verified 09/02/23 21:41 Home Medications Medication Instructions Recorded Confirmed Type albuterol sulfate 90 mcg/actuation 1 inh inhalation Q4H PRN Shortness 09/02/23 09/02/23 History aerosol inhaler Of Breath Or Wheezing aspirin 81 mg tablet,delayed 81 mg PO DAILY 09/02/23 09/02/23 History release cholecalciferol (vitamin D3) 50 50 mcg PO DAILY 09/02/23 09/02/23 History mcg (2,000 unit) capsule (Vitamin D3) cyanocobalamin (vitamin B-12) 1,000 mcg PO DAILY 09/02/23 09/02/23 History 1,000 mcg tablet (Vitamin B-12) dicyclomine 20 mg tablet 20 mg PO TID PRN ABD DISCOMFORT 09/02/23 09/02/23 History fluticasone furoate 200 1 inh inhalation DAILY 09/02/23 09/02/23 History mcg-vilanterol 25 mcg/dose inhalation powder (Breo Ellipta) gabapentin 600 mg tablet 600 mg PO HS 09/02/23 09/02/23 History levothyroxine 75 mcg tablet 75 mcg PO DAILY 09/02/23 09/02/23 History losartan 100 mg tablet 100 mg PO DAILY 09/02/23 09/02/23 History pantoprazole 40 mg tablet,delayed 40 mg PO DAILY 09/02/23 09/02/23 History release rosuvastatin 20 mg tablet 20 mg PO DAILY 09/02/23 09/02/23 History simethicone 80 mg chewable tablet 80 mg PO DIRECTED PRN 09/02/23 09/02/23 History BLOATING/GAS DISCOMFORT zolpidem 5 mg tablet (Ambien) 5 mg PO HS 09/02/23 09/02/23 History Past Med/Surg History Medical History (Updated 09/04/23 @ 17:33 by Joaquín Melo MD) Hypothyroid Eosinophilic esophagitis Louis esophagus CKD (chronic kidney disease) TIA (transient ischemic attack) Asthma Glaucoma Spondylolisthesis Sacroiliitis Surgical History (Updated 09/02/23 @ 23:44 by Tawana Waterman DO) Pacemaker Hx of cholecystectomy H/O: hysterectomy History of tonsillectomy Family History (Updated 09/02/23 @ 23:45 by Tawana Waterman DO) Other Coronary heart disease Social History Smoking Status: Former smoker Cigarettes Per Day: 1 pack per week; Hx Alcohol Use: No Hx Substance Use: No Preferred Language: Persian Communication Ability: Effective Glass Vial Bending Conveyor Feeder Required: No Beliefs That Will Affect Care: None Current Living Situation: Spouse Feels Safe at Home: Yes Assistive Devices: None Review of Systems All systems reviewed & are unremarkable except as noted in HPI & below. Physical Exam . Results & Data Results & Data Laboratory Results . Diagnostic Findings . PG Care Time/CCT Total # of Minutes Spent Total Time Spent with Patient: Total time spent is greater than 50% in coordination of care (as documented) at patient's floor/unit and/or counseling patient: Coding Level of Care Code 66608 IN/OBS CONSULT LVL 3,45M Diagnoses Degenerative spondylolisthesis M43.10 Disc degeneration, lumbosacral M51.37 Lumbar radiculopathy M54.16 Low back pain radiating to right leg M54.50; M79.604
[2023-09-04] MEDS: GABAPENTIN 600 MG TAB PO SCH (20:22)
[2023-09-04] MEDS: ZOLPIDEM TARTRATE 5 MG TAB PO SCH (20:29)
[2023-09-05] MEDS: LEVOTHYROXINE SODIUM 100 MCG TABLET PO SCH (05:49)
[2023-09-05 07:06] LABS: Calcium 8.5 mg/dl (8.6-10.3); Est GFR (African American) 46.6 ml/min; Est GFR (Non-African American) 40.2 ml/min; Potassium 3.9 mmol/L (3.5-5.1)
[2023-09-05] MEDS: ACETAMINOPHEN 500 MG TAB PO SCH ×3 (08:16→20:37)
[2023-09-05] MEDS: ASPIRIN 81 MG ECTAB PO SCH (08:16)
[2023-09-05] MEDS: DOCUSATE SODIUM 100 MG CAP PO SCH ×2 (08:17→20:35)
[2023-09-05] MEDS: CYCLOBENZAPRINE HCL 5 MG TAB PO SCH ×2 (08:17→20:37)
[2023-09-05] MEDS: LOSARTAN POTASSIUM 50 MG TAB PO SCH (08:18)
[2023-09-05] MEDS: PANTOprazole 40 MG TAB PO SCH (08:18)
[2023-09-05] MEDS: ROSUVASTATIN CALCIUM 20 MG TAB PO SCH (08:19)
[2023-09-05] MEDS: predniSONE 50 MG TAB PO SCH (08:19)
[2023-09-05] MEDS ORDERED: bisacodyL 10 MG SUPP PR STA (08:51)
[2023-09-05] MEDS ORDERED: LIDOCAINE 5% 1 PATCH TD STA (09:41)
--- NOTE | 2023-09-05 09:48 | Hospitalist Progress Note ---
Date of Service September 05, 2023 Assessment & Plan (1) Lumbar radiculopathy: Plan: 78yo female with history of chronic low back pain, sacroiliitis presenting with 2+ weeks of ongoing back pain, despite spinal injections. Pain is bilateral SI joints, worse on the right. Also with radicular pain down anterior right thigh to the knee likely corresponding with L2-L3 territory. Strength and sensation intact . Patient unable to obtain MRI due to pacemaker Will obtain CT spine lumbar Patient is under fair control, -Tylenol 1gm po TID scheduled -Heat via K-pad -Flexeril 5mg po BID -Prednisone 50mg po daily -Patient is not able to tolerate narcotics and also her poor renal function is limited her options for medications. -Continue home Gabapentin -Outpatient follow-up with orthospine surgery -PT/OT evaluation appreciated (2) CKD (chronic kidney disease): Plan: Renal function at baseline, patient has CKD stage III -Avoid nephrotoxic agents -Renal dosing where needed - eGFR=28 -Holdin Losartan (3) TIA (transient ischemic attack): Plan: Chronic. Stable. -Continue ASA 81mg po daily -Continue Crestor (4) Louis esophagus: Plan: Chronic. Stable -Continue Protonix 40mg po daily (5) Hypothyroid: Plan: Chronic -Continue Synthroid -Check TSH with AM labs Plan Hopefully discharge tomorrow and to follow-up with orthopedics outpatient Admission and Anticipated Discharge Date Admission Date: September 02, 2023 Subjective Patient seen and examined, pain is under fair control, 6/10 in intensity, not able to tolerate narcotics Review of Systems Review of Systems: All systems reviewed are negative, apart from the ones contained in the history. Physical Exam Physical Exam: The patient is awake, alert and oriented 3, well developed and well nourished, normocephalic and atraumatic, lying in bed and in no acute distress. HEENT--PERRL, EOMI, mucous membranes and oropharynx mildly dry Neck--supple. No JVD. No bruits. Thyroid normal, trachea midline, no adenopathy. Heart--normal S1 and S2. No murmurs, rubs or gallops. Lungs--clear bilaterally, no respiratory distress, no accessory muscle use. Abdomen--normal bowel sounds and soft. Extremities--no cyanosis or clubbing. No edema. Dermatologic--normal skin turgor, normal color, no abnormal lymph nodes, no rash. Neurologic--cranial nerves II through XII grossly intact. Rheumatologic--normal range of motion. Psychiatric--normal affect. Results & Data Results & Data Vital Signs (Past 12 Hours) Vital Signs Temp Pulse Resp BP Pulse Ox O2 Del Method 09/05/23 07:26 97.9 F 60 17 129/77 99 Room Air 09/04/23 22:40 Room Air PG Care Time/CCT Total # of Minutes Spent Total Time Spent with Patient: Total time spent is greater than 50% in coordination of care (as documented) at patient's floor/unit and/or counseling patient: Coding Level of Care Code 78735 SUB INP/OBS CARE 2/35MIN Diagnoses Lumbar radiculopathy M54.16 CKD (chronic kidney disease) N18.9 TIA (transient ischemic attack) G45.9 Louis esophagus K22.70 Hypothyroid E03.9 Time Spent (min) 35
[2023-09-05] MEDS: MoRPHine SULFATE 2 MG/ML CARP IV PRN (17:28)
[2023-09-05] MEDS: GABAPENTIN 600 MG TAB PO SCH (20:37)
[2023-09-05] MEDS: ZOLPIDEM TARTRATE 5 MG TAB PO SCH (20:43)
[2023-09-06] MEDS: LEVOTHYROXINE SODIUM 100 MCG TABLET PO SCH (05:53)
[2023-09-06 07:45] LABS: BUN Creatinine Ratio 25.2 (10-20); Calcium 8.6 mg/dl (8.6-10.3); Creatinine Clr Calc Pharmacy 36.6 ml/min; Est GFR (African American) 47.5 ml/min; Potassium 4.5 mmol/L (3.5-5.1)
[2023-09-06] MEDS: CYCLOBENZAPRINE HCL 5 MG TAB PO SCH ×2 (08:01→19:57)
[2023-09-06] MEDS: ACETAMINOPHEN 500 MG TAB PO SCH ×3 (08:01→19:57)
[2023-09-06] MEDS: DOCUSATE SODIUM 100 MG CAP PO SCH ×2 (08:02→19:57)
[2023-09-06] MEDS: LOSARTAN POTASSIUM 50 MG TAB PO SCH (08:02)
[2023-09-06] MEDS: PANTOprazole 40 MG TAB PO SCH (08:03)
[2023-09-06] MEDS: ASPIRIN 81 MG ECTAB PO SCH (08:03)
[2023-09-06] MEDS: predniSONE 50 MG TAB PO SCH (08:03)
[2023-09-06] MEDS: ROSUVASTATIN CALCIUM 20 MG TAB PO SCH (08:03)
[2023-09-06] MEDS: SODIUM CHLORIDE 0.9% 1,000 ML IV SCH ×2 (11:45→23:05)
[2023-09-06] MEDS: POLYETHYLENE (MIRALAX) 17 GM PACK PO SCH ×2 (11:52→19:57)
[2023-09-06] MEDS: methylPREDNISolone 60 MG in SYRINGE 0 ML IV SCH ×3 (12:10→23:05)
--- NOTE | 2023-09-06 15:54 | Hospitalist Progress Note ---
Date of Service September 06, 2023 Assessment & Plan (1) Lumbar radiculopathy: Plan: Parenteral steroid therapy. Pain control measures. Lumbar CT scan reveals mild to moderate degenerative joint disease with no indication for acute surgical intervention at this time. She cannot undergo MRI scanning due to presence of pacemaker (2) CKD (chronic kidney disease): Plan: Acute on chronic exacerbation. Creatinine improved from 1.7 down to 1.2 at this time. Continue IV fluids. Losartan on hold. Serial labs (3) TIA (transient ischemic attack): Plan: By history. Stable. Continue ASA and Crestor (4) Louis esophagus: Plan: Stable. Continue Protonix (5) Hypothyroid: Plan: Stable. Continue Synthroid replacement Plan Hopeful discharge to home tomorrow, September 07 Admission and Anticipated Discharge Date Admission Date: September 02, 2023 Subjective Alert and oriented. No acute distress. Creatinine has trended down to 1.2. Will administer parenteral steroids while hospitalized. Continue IV fluids for now. MiraLAX started for constipation. Hopefully she can go home tomorrow, September 07 Review of Systems 2 Review of Systems: Constitutional-no fever or chills ENT-no blurred vision, no double vision, no epistaxis, no sore throat Respiratory-no cough, no wheezing, no shortness of breath Cardiac-no palpitations, no chest pain. Near syncope today while standing GI-no nausea, vomiting, diarrhea, melena, hematochezia -no urinary retention, no urinary incontinence, no dysuria, no hematuria Musculoskeletal-right lumbar radiculopathy symptoms have improved since admission Skin-no bruising, no rashes, no pruritus Neuro-no isolated weakness, no paresthesia Psych-no depression, no anxiety Physical Exam 2 Physical Exam: General-alert and oriented x3, no fever, no chills HEENT-head atraumatic and normocephalic, pupils equal and reactive to light, extraocular muscles intact Neck-no lymphadenopathy or thyromegaly, trachea midline Chest-clear to auscultation. No rales, wheezing or rhonchi Cardiac-regular rate and rhythm, normal S1 and S2 Abdomen-normal bowel sounds, nontender, no hepatosplenomegaly Extremities-no cyanosis, clubbing, or edema Neuro-cranial nerves II through XII intact, motor and sensory function within normal limits, strength symmetrical, no focal deficits Psych-normal affect, normal mood Results & Data Results & Data Vital Signs (Past 12 Hours) Vital Signs Temp Pulse Resp BP Pulse Ox O2 Del Method 09/06/23 14:45 36.5 C 80 16 123/55 L 09/06/23 09:48 36.5 C 72 16 166/73 H 97 Room Air 09/06/23 07:05 36.8 C 89 16 146/67 H 94 Room Air Laboratory Results 09/03/23 07:33 09/06/23 06:40 PG Care Time/CCT Total # of Minutes Spent Total Time Spent with Patient: Total time spent is greater than 50% in coordination of care (as documented) at patient's floor/unit and/or counseling patient: Coding Level of Care Code 29083 SUB INP/OBS CARE 3/50MIN Diagnoses Lumbar radiculopathy M54.16 CKD (chronic kidney disease) N18.9 TIA (transient ischemic attack) G45.9 Louis esophagus K22.70 Hypothyroid E03.9
[2023-09-06] MEDS: MoRPHine SULFATE 2 MG/ML CARP IV PRN (17:58)
[2023-09-06] MEDS: ZOLPIDEM TARTRATE 5 MG TAB PO SCH (19:56)
[2023-09-06] MEDS: GABAPENTIN 600 MG TAB PO SCH (19:57)
[2023-09-07] MEDS: LEVOTHYROXINE SODIUM 100 MCG TABLET PO SCH (05:20)
[2023-09-07] MEDS: methylPREDNISolone 60 MG in SYRINGE 0 ML IV SCH ×4 (05:20→23:06)
[2023-09-07] MEDS: POLYETHYLENE (MIRALAX) 17 GM PACK PO SCH ×2 (08:09→20:40)
[2023-09-07] MEDS: CYCLOBENZAPRINE HCL 5 MG TAB PO SCH ×2 (08:10→20:40)
[2023-09-07] MEDS: DOCUSATE SODIUM 100 MG CAP PO SCH ×2 (08:10→20:40)
[2023-09-07] MEDS: LOSARTAN POTASSIUM 50 MG TAB PO SCH (08:10)
[2023-09-07] MEDS: ACETAMINOPHEN 500 MG TAB PO SCH (08:10)
[2023-09-07] MEDS: ROSUVASTATIN CALCIUM 20 MG TAB PO SCH (08:10)
[2023-09-07] MEDS: ASPIRIN 81 MG ECTAB PO SCH (08:11)
[2023-09-07] MEDS: PANTOprazole 40 MG TAB PO SCH (08:11)
[2023-09-07] MEDS: SODIUM CHLORIDE 0.9% 1,000 ML IV SCH (08:56)
[2023-09-07] MEDS: MoRPHine SULFATE 2 MG/ML CARP IV PRN (10:22)
[2023-09-07] MEDS: ONDANSETRON INJ 2 MG/ML 2 ML VIAL IV PRN (10:25)
[2023-09-07] MEDS ORDERED: HYDROCODONE/ACETAMOPHEN 5/325MG TAB PO PRN (11:21)
[2023-09-07] MEDS ORDERED: fentaNYL 25 MCG/HR TDSY TD SCH (11:30)
[2023-09-07] MEDS: CHECK fentaNYL PATCH PLACEMENT SCH ×2 (15:04→23:07)
--- NOTE | 2023-09-07 15:11 | Hospitalist Progress Note ---
Date of Service September 07, 2023 Assessment & Plan (1) Lumbar radiculopathy: Plan: Continue parenteral steroid therapy. Pain control measures. 2 fentanyl patch added today, September 07. Will use [place] as needed. Lumbar CT scan reveals mild to moderate degenerative joint disease with no indication for acute surgical intervention at this time. She cannot undergo MRI scanning due to presence of pacemaker (2) CKD (chronic kidney disease): Plan: Acute on chronic exacerbation. Creatinine improved from 1.7 down to 1.2 at this time. Treated with IV fluids. Losartan remains on hold. Serial labs (3) TIA (transient ischemic attack): Plan: By history. Stable. Continue ASA and Crestor (4) Louis esophagus: Plan: Stable. Continue Protonix (5) Hypothyroid: Plan: Stable. Continue Synthroid replacement Plan Hopeful discharge to home tomorrow, September 08 Admission and Anticipated Discharge Date Admission Date: September 02, 2023 Subjective Persistent back pain is primary complaint. No recurrent near syncopal symptoms with IV fluids. Creatinine has normalized. IV fluids discontinued. Will add fentanyl patch and use [place] as needed. She remains on parenteral Solu-Medrol. Hopefully she can go home when she is ambulating better. Review of Systems 2 Review of Systems: Constitutional-no fever or chills ENT-no blurred vision, no double vision, no epistaxis, no sore throat Respiratory-no cough, no wheezing, no shortness of breath Cardiac-no palpitations, no chest pain. Near syncope today while standing GI-no nausea, vomiting, diarrhea, melena, hematochezia -no urinary retention, no urinary incontinence, no dysuria, no hematuria Musculoskeletal-right lumbar radiculopathy symptoms have improved since admission Skin-no bruising, no rashes, no pruritus Neuro-no isolated weakness, no paresthesia Psych-no depression, no anxiety Physical Exam 2 Physical Exam: General-alert and oriented x3, no fever, no chills HEENT-head atraumatic and normocephalic, pupils equal and reactive to light, extraocular muscles intact Neck-no lymphadenopathy or thyromegaly, trachea midline Chest-clear to auscultation. No rales, wheezing or rhonchi Cardiac-regular rate and rhythm, normal S1 and S2 Abdomen-normal bowel sounds, nontender, no hepatosplenomegaly Extremities-no cyanosis, clubbing, or edema Neuro-cranial nerves II through XII intact, motor and sensory function within normal limits, strength symmetrical, no focal deficits Psych-normal affect, normal mood Results & Data Results & Data Vital Signs (Past 12 Hours) Vital Signs Temp Pulse Pulse Resp BP Pulse Ox O2 Del Method 09/07/23 14:20 36.5 C 73 16 120/55 L 97 Room Air 09/07/23 11:25 36.7 C 72 18 119/67 94 Room Air 09/07/23 07:45 36.3 C L 60 14 164/71 H 98 Room Air Laboratory Results 09/03/23 07:33 09/06/23 06:40 PG Care Time/CCT Total # of Minutes Spent Total Time Spent with Patient: Total time spent is greater than 50% in coordination of care (as documented) at patient's floor/unit and/or counseling patient: Coding Level of Care Code 45311 SUB INP/OBS CARE 3/50MIN Diagnoses Lumbar radiculopathy M54.16 CKD (chronic kidney disease) N18.9 TIA (transient ischemic attack) G45.9 Louis esophagus K22.70 Hypothyroid E03.9
[2023-09-07] MEDS: GABAPENTIN 600 MG TAB PO SCH (20:40)
[2023-09-07] MEDS: ZOLPIDEM TARTRATE 5 MG TAB PO SCH (23:06)
[2023-09-08] MEDS: methylPREDNISolone 60 MG in SYRINGE 0 ML IV SCH ×2 (05:44→11:39)
[2023-09-08] MEDS: LEVOTHYROXINE SODIUM 100 MCG TABLET PO SCH (05:44)
[2023-09-08 07:16] VITALS: RESP 16
[2023-09-08] MEDS: CHECK fentaNYL PATCH PLACEMENT SCH ×2 (08:25→15:25)
[2023-09-08] MEDS: DICYCLOMINE HCL 20 MG TAB PO PRN (08:26)
[2023-09-08] MEDS: POLYETHYLENE (MIRALAX) 17 GM PACK PO SCH (08:26)
[2023-09-08] MEDS: PANTOprazole 40 MG TAB PO SCH (08:27)
[2023-09-08] MEDS: CYCLOBENZAPRINE HCL 5 MG TAB PO SCH (08:27)
[2023-09-08] MEDS: LOSARTAN POTASSIUM 50 MG TAB PO SCH (08:27)
[2023-09-08] MEDS: ASPIRIN 81 MG ECTAB PO SCH (08:27)
[2023-09-08] MEDS: ROSUVASTATIN CALCIUM 20 MG TAB PO SCH (08:27)
[2023-09-08] MEDS: DOCUSATE SODIUM 100 MG CAP PO SCH (08:27)
--- NOTE | 2023-09-08 12:05 | Discharge Summary ---
Date of Service September 08, 2023 Admission HPI Per Admitting Provider Rosette Higgins is a 78yo female presenting with acute on chronic low back pain. Patient developed pain across her back in bilateral SI joints on 08/16/23. She was seen by her pain specialist, Dr. Pickering on 08/18/23 and had injections performed. She reports minimal relief with these injections. She has been taking Tylnoel, Aleve and using ice and heat with minimal relief. She took a Percocet tab as well which did not relieve her pain. She was seen again by Dr. Pickering on 08/23/23 and was told that her pain was likely from a pinched nerve in her back. She was given additional injections with some improvement for 1-2 days. She was seen in clinic again today with ongoing pain and was instructed to come to the ER for additional workup and treatment. Patient reports severe, ongoing pain in her bilateral SI joints which is worse on the right. She has pain radiating down the right anterior thigh to the knee. She feels that the RLE is overall fairly strong but sometimes des which she thinks is from the pain. She has had some constipation, otherwise, no change in bowels or bladder. No fever. No trauma. Patient has had poor appetite and decreased oral intake of late secondary to her pain. She has had some constipation as well. Otherwise, denies fever, chills, chest pain, cough,, SOB, abdominal pain, vomiting or diarrhea. At baseline she is fairly active. She is able to ambulate short distances without assistance. She also walks her dog frequently. In the ER she is afebrile, HD stable ER course: Zofran 4mg IV x 2 Morphine 4mg IV x 3 doses NSS x 500mL Dexamethasone 10mg IV Principal Diagnosis Acute on chronic low back pain with lumbar radiculopathy, near syncope, acute on chronic kidney disease stage III Discharge Exam General-alert and oriented x3, no fever, no chills HEENT-head atraumatic and normocephalic, pupils equal and reactive to light, extraocular muscles intact Neck-no lymphadenopathy or thyromegaly, trachea midline Chest-clear to auscultation. No rales, wheezing or rhonchi Cardiac-regular rate and rhythm, normal S1 and S2 Abdomen-normal bowel sounds, nontender, no hepatosplenomegaly Extremities-no cyanosis, clubbing, or edema Neuro-cranial nerves II through XII intact, motor and sensory function within normal limits, strength symmetrical, no focal deficits Psych-normal affect, normal mood Discharge Data Allergies Allergy/AdvReac Type Severity Reaction Status Date / Time adhesive tape Allergy Intermediate SKIN Verified 09/02/23 21:41 IRRITATION Iodinated Contrast Media Allergy Intermediate TROUBLE Verified 09/02/23 23:07 BREATHING, "HOT" FLUSHED Penicillins Allergy Intermediate INJECTION Verified 09/02/23 21:41 SITE--SEVERE SWELLING tramadol Allergy Unknown Unknown Verified 09/02/23 21:41 oxycodone [From Percocet] AdvReac Intermediate Vomiting Verified 09/02/23 21:41 Consultations 09/02/23 22:27 ED Decision to Admit Stat 09/04/23 14:08 Consult Orthopedic Surgery Routine Ordered Studies 09/02/23 20:20 CT abd pelvis wo con Stat 09/04/23 11:36 CT spine [CT lumbar spine wo con] Routine Hospital Course (1) Lumbar radiculopathy: Improved with parenteral steroid therapy. She will be switched to a oral prednisone tapering dose at discharge. Pain control measures include fentanyl patch added on September 07. Will use [place] as needed. Lumbar CT scan reveals mild to moderate degenerative joint disease with no indication for acute surgical intervention at this time. She cannot undergo MRI scanning due to presence of pacemaker (2) CKD (chronic kidney disease): Acute on chronic exacerbation. Creatinine improved from 1.7 down to 1.2 at this time. Treated with IV fluids. Losartan remains on hold. Will resume at discharge. Serial labs (3) TIA (transient ischemic attack): By history. Stable. Continue ASA and Crestor (4) Louis esophagus: Stable. Continue Protonix (5) Hypothyroid: Stable. Continue Synthroid replacement Plan Home today, September 08 Total Time Total Time Spent Total Time Spent (In Minutes): 45 minutes Discharge Plan Discharge Items Patient Disposition: Home - Home Health Services Reason For Visit: INTRACTABLE BACK PAIN Discharge Diagnosis: Acute on chronic low back pain, lumbar radiculopathy, near syncope Activity: Resume your previous activity Non-emergency contact: Primary Care Provider Call non-emergency contact if: your symptoms worsen Follow-up/Referrals: VERÓNICA TRINIDAD [Other] Diet: Regular and Heart Healthy Addtl Attending Provider Instructions: Change fentanyl patch every 3 days. Take prednisone in a tapering dose fashion as directed. Use [place] as needed for breakthrough pain Pending Studies at Discharge: No Stand-Alone Forms: My [facility] [facility], Smoking Cessation Medications and DC Order Prescriptions: New hydrocodone-acetaminophen 5-325 mg Tablet 1 tab PO Q6H PRN (Reason: pain) Qty: 30 0RF fentanyl 25 mcg/hr Patch 72 Hour 25 mcg transdermal Q3D@1130 Qty: 10 0RF prednisone 10 mg tablet See Rx Instructions .ROUTE .COMPLEX Qty: 12 0RF Rx Instructions: 10 mg orally 3 times a day for 2 days, then 10 mg twice a day for 2 days, then 10 mg once a day for 2 days, then stop docusate sodium 100 mg Capsule 100 mg PO BID Qty: 0 0RF polyethylene glycol 3350 [Miralax] 17 gram Powder In Packet 17 g PO BID Qty: 0 0RF Continued gabapentin 600 mg Tablet 600 mg PO HS cyanocobalamin (vitamin B-12) [Vitamin B-12] 1,000 mcg Tablet 1,000 mcg PO DAILY aspirin 81 mg Tablet,Delayed Release (Dr/Ec) 81 mg PO DAILY levothyroxine 75 mcg Tablet 75 mcg PO DAILY dicyclomine 20 mg Tablet 20 mg PO TID PRN (Reason: ABD DISCOMFORT) pantoprazole 40 mg Tablet,Delayed Release (Dr/Ec) 40 mg PO DAILY zolpidem [Ambien] 5 mg Tablet 5 mg PO HS albuterol sulfate 90 mcg/actuation Hfa Aerosol Inhaler 1 inh INHALATION Q4H PRN (Reason: Shortness Of Breath Or Wheezing) losartan 100 mg Tablet 100 mg PO DAILY simethicone [Gas-X] 80 mg Tablet,Chewable 80 mg PO DIRECTED PRN (Reason: BLOATING/GAS DISCOMFORT) rosuvastatin 20 mg Tablet 20 mg PO DAILY cholecalciferol (vitamin D3) [Vitamin D3] 50 mcg (2,000 unit) Capsule 50 mcg PO DAILY fluticasone furoate-vilanterol [Breo Ellipta] 200-25 mcg/dose Blister With Device 1 inh INHALATION DAILY Discharge Orders: Discharge Order (Routine); Ordered 09/08/23 Ordered By: Stalin Sancehz Admission Data Admit Date/Time: 09/02/23 23:23 Attending Provider: Stalin Sanchez Admit Provider: Tawana Waterman Primary Care Provider: VERÓNICA TRINIDAD Other Providers: Tawana Waterman; Fco Solomon; [facility],[place], Located [facility] Coding Level of Care Code 29410 INP/OBS DISCH >30 MIN Diagnoses Lumbar radiculopathy M54.16 CKD (chronic kidney disease) N18.9 TIA (transient ischemic attack) G45.9 Louis esophagus K22.70 Hypothyroid E03.9
[2023-09-08 14:21] VITALS: TEMP 97.2; O2SAT 96
[2023-09-08 15:27] VITALS: BP 129/70; PULSE 65
== END 2023-09-08 16:42 | disposition home health service (06) ==
LOC: SUATTDRO → ED 18:07 → INTOOBSV 23:23 → SUATTDRO 23:23 → 3W 23:23
DX: Z91.09 Other allergy status, other than to drugs and biological substances; M51.17 Intervertebral disc disorders with radiculopathy, lumbosacral region; Z91.041 Radiographic dye allergy status; R55 Syncope and collapse; Z79.51 Long term (current) use of inhaled steroids; Z86.73 Personal history of transient ischemic attack (TIA), and cerebral infarction without residual deficits; Z87.891 Personal history of nicotine dependence; E03.9 Hypothyroidism, unspecified; Z95.0 Presence of cardiac pacemaker; Z88.0 Allergy status to penicillin; Z88.6 Allergy status to analgesic agent; M43.16 Spondylolisthesis, lumbar region; K22.70 Barrett's esophagus without dysplasia; Z79.899 Other long term (current) drug therapy; Z79.82 Long term (current) use of aspirin; N18.30 Chronic kidney disease, stage 3 unspecified